=== PATIENT | female | born 1985 | race Two or more races ===

== ENCOUNTER 2017-04-29 03:55 | Emergency (ER) | payer SELFPAY ==
[~2017-04-29] VITALS: Ht 170.2 cm; Wt 77.1 kg
[2017-04-29 03:55] VITALS: BP 135/82
[2017-04-29] MEDS ORDERED: UNOBMED (04:00)
[2017-04-29] MEDS ORDERED: LORazepam Inj 2mg/ml 1ml IV ONE (04:15)
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
[2017-04-29 04:34] LABS: BASOPHILS % (AUTO) 0.6 % (0.0-2.0); EOSINOPHILS % (AUTO) 0.2 % (0.0-3.0); MEAN CORPUSCULAR HEMOGLOBIN 28.6 PG (27.0-31.0); MEAN CORPUSCULAR HGB CONC 33.1 G/DL (32.0-36.0); MEAN CORPUSCULAR VOLUME 87 FL (80-99); MEAN PLATELET VOLUME 8.7 FL (6.5-10.1); MONOCYTES % (AUTO) 5.9 % (1.0-10.0); NEUTROPHILS % (AUTO) 71.4 % (45.0-75.0); PLATELET COUNT 363 K/UL (150-450); RED BLOOD COUNT 5.12 M/UL (4.20-5.40); RED CELL DISTRIBUTION WIDTH 12.6 % (11.6-14.8); WHITE BLOOD COUNT 13.2 K/UL (4.8-10.8)
[2017-04-29 04:46] LABS: ANION GAP 17 mmol/L (5-15); CALCIUM 9.7 MG/DL (8.5-10.1); CARBON DIOXIDE 19 MMOL/L (21-32); CHLORIDE 99 MMOL/L (98-107); CREATININE 1.1 MG/DL (0.55-1.30); GLOMERULAR FILTRATION RATE 58.7 mL/min (>60); POTASSIUM 3.3 MMOL/L (3.5-5.1); SODIUM 135 MMOL/L (136-145)
[2017-04-29 04:51] LABS: ALANINE AMINOTRANSFERASE 33 U/L (12-78); ALBUMIN/GLOBULIN RATIO 0.8 (1.0-2.7); ASPARTATE AMINO TRANSFERASE 19 U/L (15-37); TOTAL PROTEIN 8.9 G/DL (6.4-8.2)
[2017-04-29 04:52] LABS: ACETAMINOPHEN < 2 MCG/ML (10-30); ALCOHOL < 3 mg/dL
[2017-04-29 05:17] LABS: ABG ALLEN TEST POSITIVE; ABG BASE EXCESS -3.2; ABG PCO2 38.2 mmHg (35.0-45.0)
[2017-04-29 05:22] LABS: APPEARANCE,URINE CLEAR; KETONES,URINE 3+ (NEGATIVE); LEUKOCYTE ESTERASE ,URINE NEGATIVE (NEGATIVE); NITRITE,URINE NEGATIVE (NEGATIVE); PH,URINE 6 (4.5-8.0); PROTEIN,URINE 3+ (NEGATIVE); UROBILINOGEN,URINE 1 MG/DL (0.0-1.0)
[2017-04-29 05:31] LABS: BACTERIA,URINE FEW /HPF; RBC,URINE 0 /HPF (0 - 2); SQUAMOUS EPITHELIAL CELL,UR MANY /LPF (NONE/OCC)
[2017-04-29 05:32] LABS: AMORPHOUS SEDIMENT,UR MODERATE /LPF
[2017-04-29 05:55] VITALS: BP 127/79
[2017-04-29] MEDS ORDERED: metFORMIN 500mg tab ORAL STA (06:36)
[2017-04-29 08:07] VITALS: BP 106/72
[2017-04-29 12:37] VITALS: BP 97/71
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
== END 2017-04-29 12:37 | disposition home or self-care (01) ==
LOC: EDBD 03:55 → EMR 04:54
DX: F29 Unspecified psychosis not due to a substance or known physiological condition (principal); F31.9 Bipolar disorder, unspecified; R45.851 Suicidal ideations; F43.10 Post-traumatic stress disorder, unspecified; F20.9 Schizophrenia, unspecified
CPT/HCPCS: 36415; 36600; 80053; 80307; 81003; 81025; 82009; 82803; 85025; 96361; 96374; 99284; G0480; 80329